=== PATIENT | female | born 1960 | race Caucasian/White ===

== ENCOUNTER → 2018-03-13 | Outpatient (CLI) | payer BC ==
--- NOTE | 2018-03-14 07:08 | US ---
EXAMINATION TYPE: US thyroid st tissue head/neck DATE OF EXAM: 03/13/2018 COMPARISON: NONE CLINICAL HISTORY: E03.9 hypothyroidism. Pt on thyroid meds x 40+ years/ hypothyroid GLAND SIZE: Right Lobe: 3.7 x 0.8 x 1.5 cm Overall Parenchyma: heterogenous Left Lobe: 3.6 x 0.9 x 1.2 cm Overall Parenchyma: heterogeneous Isthmus Thickness: 0.2 cm Bilateral neck scanned, no evidence of lymphadenopathy. Bilateral, echogenic, small, heterogeneous th yroid. No evidence of nodules. IMPRESSION: Generalized thyroid atrophy with no focal measurable nodule.
== END | disposition home or self-care (01) ==
LOC: RADUSWWP 16:48
PROVIDERS: ATTEND Family Medicine
DX: E03.4 Atrophy of thyroid (acquired) (principal); E03.9 Hypothyroidism, unspecified
CPT/HCPCS: 76536

== ENCOUNTER 2021-02-22 07:42 | Day surgery (SDC) | payer BC ==
[2021-02-20 15:48] VITALS: BMI 26.6
[~2021-02-22 07:42] MED LIST: LACTATED RINGERS 1,000 ML IV SCH; LIDOCAINE 1% (10MG/ML) FOR IV START INTRADERMA PRN
[2021-02-22 09:07] VITALS: TEMP 98
[2021-02-22] MEDS ORDERED: LACTATED RINGERS 1,000 ML IV ONE (09:07)
[2021-02-22] MEDS ORDERED: LIDOCAINE 1% INJ 10MG/ML (20 ML MDV) ONE (09:30)
[2021-02-22] MEDS ORDERED: PROPOFOL 10 MG/ML 20 ML VIAL IV ONE (09:30)
--- NOTE | 2021-02-22 09:53 | P.PCN ---
Date of Procedure: 02/22/21 Procedure(s) Performed: Brief history: Patient is a pleasant 60-year-old white female scheduled for an elective upper endoscopy as well as colonoscopy as a part of evaluation of GERD and screening for colon cancer. Her father was diagnosed with colon cancer at age 65. Procedure performed: Esophagogastroduodenoscopy with biopsy Colonoscopy Preoperative diagnosis: GERD Screening for colon cancer/family history of colon cancer Anesthesia: MAC Procedure: After informed consent was obtained from the patient was brought into the endoscopy unit and IV sedation was administered by anesthesia under continuous monitoring. Initially upper endoscopy was done. The Olympus GF 160 video endoscope was inserted inserted into the mouth and esophagus intubated without any difficulty and was gradually advanced into the stomach and duodenum and carefully examined. The bulb and second part of the duodenum appeared normal. The scope was then withdrawn into the stomach adequately insufflated with air and upon careful examination the antrum had mild gastritis and biopsies were done from this area. Several small gastric polyps noted in the body the stomach which was also biopsied. Rest of the body, cardia and fundus appeared normal. The scope was then withdrawn into the esophagus. The GE junction was located at 40 cm to the incisors. It appeared regular with no erythema erosions or ulcerations. Rest of the esophagus appeared normal. Patient tolerated the procedure well. At this time the patient continued to remain sedation. Initial digital rectal examination was normal. Olympus CF 160 video colonoscope was then inserted into the rectum and gradually advanced to the cecum without any difficulty. Careful examination was performed as the scope was gradually being withdrawn. The prep was excellent. The cecum, ascending colon, transverse colon, descending colon, sigmoid colon and rectum appeared normal. Retroflexion was performed in the rectum and no lesions were noted. Patient tolerated the procedure well. Impression: 1. Upper Endoscopy revealed mild antral gastritis and small gastric polyps 2 Colonoscopy was within normal limits with no evidence of colitis or colorectal neoplasia Recommendations: Findings of this examination were discussed with the patient as well aher family. She was advised to follow with the biopsy results. She will continue with AcipHex 20 mg daily and follow antireflux measures. She can have a repeat screening colonoscopy every 5 years because of the family history of colon cancer
[2021-02-22 10:03] VITALS: RESP 16
[2021-02-22 10:13] VITALS: BP 123/80; PULSE 65
== END 2021-02-22 10:35 | disposition home or self-care (01) ==
LOC: ORWHC2ENDO 07:42
PROVIDERS: ATTEND Internal Medicine Gastroenterology
DX: Z12.11 Encounter for screening for malignant neoplasm of colon (principal); K29.50 Unspecified chronic gastritis without bleeding; K31.7 Polyp of stomach and duodenum; Z91.041 Radiographic dye allergy status; Z80.0 Family history of malignant neoplasm of digestive organs; Z79.890 Hormone replacement therapy; Z79.899 Other long term (current) drug therapy; Z88.1 Allergy status to other antibiotic agents; E07.9 Disorder of thyroid, unspecified
CPT/HCPCS: 88305; 88342; 43239; J2001; J2704; G0105; 45378

== ENCOUNTER → 2024-01-23 | Outpatient (CLI) | payer BC ==
--- NOTE | 2024-01-23 11:22 | MR ---
EXAMINATION TYPE: MR brain and iac wo/w con DATE OF EXAM: 01/23/2024 COMPARISON: None HISTORY: Dizziness TECHNIQUE: Multiplanar, multisequence images of the brain and brainstem is performed without and with IV contras t, utilizing 7.5 mL intravenous Gadavist . FINDINGS: Diffusion weighted images demonstrate no evidence of a recent infarct or other diffusion ab normality. Mild generalized degenerative change. There couple punctate areas of abnormal signal scattered throug hout the white matter bilaterally which is nonspecific. Most likely in the basis of hypertension, or remote microvascular ischemia. There is no evidence of cerebellopontine angle mass or acoustic schwannoma. Changes of mild right chr onic mastoiditis. Midline structures demonstrate normal morphology. The craniocervical junction appears within normal limits. Post contrast images demonstrate no abnormal enhancement. The dural venous sinuses appear pa tent. Mild changes of chronic sinusitis. Orbits are symmetric. IMPRESSION: 1. No evidence of cerebellopontine angle mass or acoustic schwannoma. 2. Minimal nonspecific white matter changes most typical of remote microvascular ischemia. 3. Correlate for chronic right mastoiditis.
== END | disposition home or self-care (01) ==
LOC: RADMRIMAIN 09:13
PROVIDERS: ATTEND Family Medicine
DX: G93.89 Other specified disorders of brain (principal); I67.82 Cerebral ischemia
CPT/HCPCS: 70553; A9585

== ENCOUNTER 2024-05-12 23:01 | Emergency (ER) | payer BC ==
[2024-05-12 23:10] VITALS: RESP 18
--- NOTE | 2024-05-13 00:57 | XR ---
EXAMINATION TYPE: XR chest 2V DATE OF EXAM: 05/13/2024 COMPARISON: NONE HISTORY: Chest pain TECHNIQUE: Frontal and lateral views of the chest are obtained. FINDINGS: Focal left basilar linear scarring and/or atelectasis. Right lung is clear. The cardiac si lhouette size is within normal limits. The osseous structures are intact. IMPRESSION: Left basilar linear scarring and/or atelectasis.
--- NOTE | 2024-05-13 01:03 | CT ---
EXAMINATION TYPE: CT cervical spine wo con DATE OF EXAM: 05/13/2024 COMPARISON: NONE HISTORY: neck pain for one day and spasms CT DLP: 363.2 mGycm. Automated Exposure Control for Dose Reduction was Utilized. TECHNIQUE: CT scan of the cervical spine is obtained without contrast, axial images are obtained, sa gittal and coronal reformatted images are also reviewed. FINDINGS: Cervical spine is visualized in its entirety from C1 through upper thoracic levels, demonst rates scoliotic curvature without evidence of acute fracture or dislocation. Prevertebral soft tissu e appears within normal limits. The C1-C2 articulation is within normal limits on the coronal images . Vertebral body heights and disc space heights are fairly well maintained. Spinal canal is grossly p reserved Review of axial images shows no significant spinal canal stenosis or neural foraminal narrowing at an y cervical level. Thyroid gland is hypoplastic and/or surgically absent. Visualized lung apices are c lear without pneumothorax seen. IMPRESSION: There is no acute findings evident in the cervical spine. MRI noted more sensitive.
[2024-05-13 01:24] LABS: Basophils % (A) 0 %; Eosinophils # (A) 0.1 k/uL (0-0.7); Eosinophils % (A) 0 %; HCT 44.5 % (34.0-46.0); HGB 14.3 gm/dL (11.4-16.0); Lymphocytes # (A) 1.8 k/uL (1.0-4.8); Lymphocytes % (A) 14 %; MCH 30.9 pg (25.0-35.0); MCHC 32.1 g/dL (31.0-37.0); MCV 96.3 fL (80.0-100.0); Mean Platelet Volume 7.4; Monocytes # (A) 0.7 k/uL (0-1.0); Monocytes % (A) 5 %; Neutrophils # (A) 10.1 k/uL (1.3-7.7); Neutrophils % (A) 79 %; Platelet Count 252 k/uL (150-450); RBC 4.62 m/uL (3.80-5.40); RDW 12.3 % (11.5-15.5); WBC 12.8 k/uL (3.8-10.6)
[2024-05-13] MEDS: SODIUM CHLORIDE 0.9% 1,000 ML IV STA (01:28)
[2024-05-13] MEDS: diazePAM 2 MG TAB PO STA (01:30)
[2024-05-13 01:41] LABS: ALT 20 U/L (4-34); AST 23 U/L (14-36); African American GFR (CKD) >90 (>60 ml/min/1.73 sqM); Albumin 4.7 g/dL (3.5-5.0); Alkaline Phosphatase 104 U/L (38-126); Anion Gap 12 mmol/L; Blood Urea Nitrogen 15 mg/dL (7-17); Calcium 9.7 mg/dL (8.4-10.2); Carbon Dioxide 21 mmol/L (22-30); Chloride 106 mmol/L (98-107); Glucose 149 mg/dL (74-99); Magnesium 2.1 mg/dL (1.6-2.3); Non-African American GFR(CKD) >90 (>60 ml/min/1.73 sqM); Potassium 3.8 mmol/L (3.5-5.1); Sodium 139 mmol/L (137-145); Total Bilirubin 0.7 mg/dL (0.2-1.3); Total Protein 7.5 g/dL (6.3-8.2)
[2024-05-13 01:44] LABS: Partial Thromboplastin Time 25.9 sec (22.0-30.0); Prothrombin Time 10.6 sec (10.0-12.5)
[2024-05-13] MEDS: KETOROLAC 15 MG/ML 1 ML VIAL IVP STA (02:13)
--- NOTE | 2024-05-13 02:54 | ED ---
Neck Injury/Pain HPI - General Chief Complaint: Neck Pain/Injury Stated Complaint: Muscle spams in chest and in back of neck. Time Seen by Provider: 05/13/24 00:15 Source: patient, RN notes reviewed Mode of arrival: ambulatory Limitations: no limitations - History of Present Illness Initial Comments: 64 year old female presenting to the ER with a chief complaint of neck pain and chest pain. Patient states she is currently in physical therapy for vertigo and neck spasms. She states today she had a physical therapy session with adjustments. States since then she has been experiencing a tightness in bilateral upper chest. She states it is not painful to touch or movement of arms. She does report she had an extensive cardiac workup recently with stress test and echo which was negative. She denies any shortness of breath, dizziness, nausea, vomiting or peripheral edema. She does states she has been taking prescribed muscle relaxers and [id number] Advil with minor relief. Denies any fevers or chills. - Related Data Home Medications Medication Instructions Recorded Confirmed Fluticasone Nasal [place] [Flonase 2 spr EA NOSTRIL DAILY 02/13/16 02/20/21 Nasal [place]] RABEprazole SODIUM [Aciphex] 20 mg PO DAILY 02/13/16 02/20/21 Levothyroxine Sodium 112 mcg PO QAM 08/12/20 02/20/21 ALPRAZolam [Xanax] 0.25 mg PO DAILY PRN 02/20/21 02/20/21 Fexofenadine HCl [Mai Allergy] 180 mg PO DAILY 02/20/21 02/20/21 Baclofen [Lioresal] 1 PO HS 05/13/24 Allergies Allergy/AdvReac Type Severity Reaction Status Date / Time bacitracin Allergy "wound did Verified 05/12/24 23:05 [From Neosporin not heal" ([id number])] bacitracin zinc Allergy "wound did Verified 05/12/24 23:05 [From Neosporin not heal" ([id number])] cefuroxime axetil Allergy Rash/Hives Verified 05/12/24 23:05 [From Ceftin] Iodinated Contrast Media Allergy Itching,alexa Verified 05/12/24 23:05 [Iodinated Contrast Media - h IV Dye] neomycin sulfate Allergy "wound did Verified 05/12/24 23:05 [From Neosporin not heal" ([id number])] polymyxin B Allergy "wound did Verified 05/12/24 23:05 [From Neosporin not heal" ([id number])] Review of Systems ROS Statement: Those systems with pertinent positive or pertinent negative responses have been documented in the HPI. ROS Other: All systems not noted in ROS Statement are negative. Past Medical History Past Medical History: Diabetes Mellitus, Thyroid Disorder Additional Past Medical History / Comment(s): Seasonal allergies, hx of H Pylori. History of Any Multi-Drug Resistant Organisms: None Reported Additional Past Surgical History / Comment(s): EGD, colonoscopy. Past Anesthesia/Blood Transfusion Reactions: No Reported Reaction Past Psychological History: Anxiety Smoking Status: Never smoker Past Alcohol Use History: Occasional Past Drug Use History: None Reported - Past Family History Father Family Medical History: Cancer Additional Family Medical History / Comment(s): colon General Exam Limitations: no limitations General appearance: alert, in no apparent distress Neck exam: Present: normal inspection. Absent: tenderness, meningismus, lymphadenopathy Respiratory exam: Present: normal lung sounds bilaterally. Absent: respiratory distress, wheezes, rales, rhonchi, stridor Cardiovascular Exam: Present: regular rate, normal rhythm, normal heart sounds. Absent: systolic murmur, diastolic murmur, rubs, gallop, clicks Extremities exam: Present: normal inspection, full ROM, normal capillary refill. Absent: tenderness, pedal edema, joint swelling, calf tenderness Skin exam: Present: warm, dry, intact, normal color. Absent: rash Course Vital Signs 05/12/24 05/13/24 23:06 03:12 Temperature 97.5 F L 97.8 F Pulse Rate 99 69 Respiratory 18 18 Rate Blood Pressure 169/98 173/91 O2 Sat by Pulse 100 100 Oximetry Medical Decision Making - Medical Decision Making Was pt. sent in by a medical professional or institution (, PA, THINNER SPRAYER, urgent c are, hospital, or detention...) When possible be specific @ -No Did you speak to anyone other than the patient for history (EMS, parent, family, police, friend...)? What history was obtained from this source @ -No Did you review nursing and triage notes (agree or disagree)? Why? @ -I reviewed and agree with nursing and triage notes Were old charts reviewed (outside hosp., previous admission, EMS record, old EKG, old radiological studies, urgent care reports/EKG's, detention records)? Report findings @ -No old charts were reviewed Differential Diagnosis (chest pain, altered mental status, abdominal pain women, abdominal pain men, vaginal bleeding, weakness, fever, dyspnea, syncope, headache, dizziness, GI bleed, back pain, seizure, CVA, palpatations, mental health, musculoskeletal)? @ -Differential Chest Pain:Stable Angina, Unstable Angina, STEMI, NSTEMI Aortic Dissection, Pneumothorax, Musculoskeletal, Esophageal Spasm GERD, Cholecystitis, Pancreatitis, Zoster, this is not meant to be an all-inclusive list. EKG interpreted by me (3pts min.). @ -As above X-rays interpreted by me (1pt min.). @ -[Chest t x-ray interpreted by me negative for acute cardiopulmonary process. CT interpreted by me (1pt min.). @ -CT cervical spine negative for acute findings. U/S interpreted by me (1pt. min.). @ -[None done What testing was considered but not performed or refused? (CT, X-rays, U/S, labs)? Why? @ -None What meds were considered but not given or refused? Why? @ -None Did you discuss the management of the patient with other professionals (professionals i.e. , PA, THINNER SPRAYER, lab, RT, psych nurse, clinical social work therapist, end trimmer, teacher, booking police officer, field nurse case manager)? Give summary @ -No Was smoking cessation discussed for >3mins.? @ -No Was critical care preformed (if so, how long)? @ -No Were there social determinants of health that impacted care today? How? (Homelessness, low income, unemployed, alcoholism, drug addiction, transportation, low edu. Level, literacy, decrease access to med. care, fdc, rehab)? @ -No Was there de-escalation of care discussed even if they declined (Discuss DNR or withdrawal of care, Hospice)? DNR status @ -No What co-morbidities impacted this encounter? (DM, HTN, Smoking, COPD, CAD, Cancer, CVA, ARF, Chemo, Hep., AIDS, mental health diagnosis, sleep apnea, morbid obesity)? @ -None Was patient admitted / discharged? Hospital course, mention meds given and route, prescriptions, significant lab abnormalities, going to OR and other pertinent info. @ -Discharge. 64-year-old female presented to the ER with a chief complaint of neck and chest pain. History and physical exam completed. Vitals stable. Patient in no signs of acute distress and nontoxic-appearing. Exam unremarkable. Pain is not reproducible to palpation or movement. Cardiac workup will be obtained. Laboratory studies unimpressive. Troponin undetectabl e. Due to patient's recent extensive outpatient cardiac workup patient stable for discharge. HEART score 3. Chest x-ray negative for acute process. CT cervical spine negative. Patient received IV Toradol and p.o. Valium for symptom control in the ER. Upon reevaluation, patient resting comfortably in exam room in no signs of acute distress. Patient reporting improvement of symptoms. Patient stable for condition at this time. Results discussed with patient, all questions answered. Advised close follow-up with PCP. Strict return parameters discussed. Patient discharged in stable condition. Patient verbally expressed understanding and agreement with care plan. Case discussed with ED attending, Dr. Cedeño. Undiagnosed new problem with uncertain prognosis? @ -No Drug Therapy requiring intensive monitoring for toxicity (Heparin, Nitro, Insulin, Cardizem)? @ -No Were any procedures done? @ -No Diagnosis/symptom? @ -Musculoskeletal pain Acute, or Chronic, or Acute on Chronic? @ -Acute Uncomplicated (without systemic symptoms) or Complicated (systemic symptoms)? @ -Uncomplicated Side effects of treatment? @ -No Exacerbation, Progression, or Severe Exacerbation? @ -No Poses a threat to life or bodily function? How? (Chest pain, [place], [place], pneumonia, PE, COPD, DKA, ARF, appy, cholecystitis, CVA, Diverticulitis, Homicidal, Suicidal, threat to staff... and all critical care pts) @ -No - Lab Data Result diagrams: 05/13/24 01:09 05/13/24 01:09 Lab Results 05/13/24 05/13/24 05/13/24 Range/Units 01:09 01:09 01:09 WBC 12.8 H (3.8-10.6) k/uL RBC 4.62 (3.80-5.40) m/uL Hgb 14.3 (11.4-16.0) gm/dL Hct 44.5 (34.0-46.0) % MCV 96.3 (80.0-100.0) fL MCH 30.9 (25.0-35.0) pg MCHC 32.1 (31.0-37.0) g/dL RDW 12.3 (11.5-15.5) % Plt Count 252 (150-450) k/uL MPV 7.4 Neutrophils % 79 % Lymphocytes % 14 % Monocytes % 5 % Eosinophils % 0 % Basophils % 0 % Neutrophils # 10.1 H (1.3-7.7) k/uL Lymphocytes # 1.8 (1.0-4.8) k/uL Monocytes # 0.7 (0-1.0) k/uL Eosinophils # 0.1 (0-0.7) k/uL Basophils # 0.0 (0-0.2) k/uL PT 10.6 (10.0-12.5) sec INR 1.0 (<1.2) APTT 25.9 (22.0-30.0) sec Sodium 139 (137-145) mmol/L Potassium 3.8 (3.5-5.1) mmol/L Chloride 106 (98-107) mmol/L Carbon Dioxide 21 L (22-30) mmol/L Anion Gap 12 mmol/L BUN 15 (7-17) mg/dL Creatinine 0.61 (0.52-1.04) mg/dL Est GFR (CKD-EPI)AfAm >90 (>60 ml/min/1.73 sqM) Est GFR (CKD-EPI)NonAf >90 (>60 ml/min/1.73 sqM) Glucose 149 H (74-99) mg/dL Calcium 9.7 (8.4-10.2) mg/dL Magnesium 2.1 (1.6-2.3) mg/dL Total Bilirubin 0.7 (0.2-1.3) mg/dL AST 23 (14-36) U/L ALT 20 (4-34) U/L Alkaline Phosphatase 104 (38-126) U/L Troponin I (0.000-0.034) ng/mL Total Protein 7.5 (6.3-8.2) g/dL Albumin 4.7 (3.5-5.0) g/dL 05/13/24 Range/Units 01:09 WBC (3.8-10.6) k/uL RBC (3.80-5.40) m/uL Hgb (11.4-16.0) gm/dL Hct (34.0-46.0) % MCV (80.0-100.0) fL MCH (25.0-35.0) pg MCHC (31.0-37.0) g/dL RDW (11.5-15.5) % Plt Count (150-450) k/uL MPV Neutrophils % % Lymphocytes % % Monocytes % % Eosinophils % % Basophils % % Neutrophils # (1.3-7.7) k/uL Lymphocytes # (1.0-4.8) k/uL Monocytes # (0-1.0) k/uL Eosinophils # (0-0.7) k/uL Basophils # (0-0.2) k/uL PT (10.0-12.5) sec INR (<1.2) APTT (22.0-30.0) sec Sodium (137-145) mmol/L Potassium (3.5-5.1) mmol/L Chloride (98-107) mmol/L Carbon Dioxide (22-30) mmol/L Anion Gap mmol/L BUN (7-17) mg/dL Creatinine (0.52-1.04) mg/dL Est GFR (CKD-EPI)AfAm (>60 ml/min/1.73 sqM) Est GFR (CKD-EPI)NonAf (>60 ml/min/1.73 sqM) Glucose (74-99) mg/dL Calcium (8.4-10.2) mg/dL Magnesium (1.6-2.3) mg/dL Total Bilirubin (0.2-1.3) mg/dL AST (14-36) U/L ALT (4-34) U/L Alkaline Phosphatase (38-126) U/L Troponin I <0.012 (0.000-0.034) ng/mL Total Protein (6.3-8.2) g/dL Albumin (3.5-5.0) g/dL - EKG Data -: EKG Interpreted by Me EKG Comments: EKG taken at 0: 34 showing a sinus rhythm with no acute ST segment or T wave abnormalities. Normal axis. Ventricular rate 82, IL interval 145, QRS duration 89, QT/QTc 378/417. - Radiology Data Radiology results: report reviewed, image reviewed Disposition Clinical Impression: Musculoskeletal pain Disposition: HOME SELF-CARE Condition: Stable Instructions (If sedation given, give patient instructions): Musculoskeletal Pain (ED) Additional Instructions: Continue taking muscle relaxers as prescribed. I recommend [id number] Tylenol and Motrin for pain control. Please follow-up with primary care physician. Return to the ER for any new or worsening concerns. Is patient prescribed a controlled substance at d/c from ED?: No Referrals: Rolando Louise MD [Primary Care Provider] - 1-2 days Time of Disposition: 02:54
[2024-05-13 03:14] VITALS: BP 173/91; PULSE 69; TEMP 97.8
== END 2024-05-13 03:14 | disposition home or self-care (01) ==
LOC: EC 23:01
DX: M54.2 Cervicalgia (principal); R07.89 Other chest pain; Z88.1 Allergy status to other antibiotic agents; Z88.8 Allergy status to other drugs, medicaments and biological substances; Z91.041 Radiographic dye allergy status
CPT/HCPCS: 36415; 93005; 80053; 83735; 84484; 85025; 85610; 85730; 71046; 72125; 99284; 96374; 96361; J1885